=== PATIENT | female | born 1980 | race Caucasian/White ===

== ENCOUNTER 2018-10-04 12:30 | Emergency (ER) | payer OTHER ==
[~2018-10-04] VITALS: Ht 165.1 cm; Wt 77.1 kg
[~2018-10-04 12:30] MED LIST: CLEOCIN HCL150 MG PO; IBUPROFEN 800800 M1 PO
[2018-10-04] MEDS ORDERED: AMOXICILLIN 50500 MG PO (12:42)
[2018-10-04] MEDS ORDERED: IBUPROFEN 800800 M1 PO (12:43)
[2018-10-04 12:51] LABS: URINE BILIRUBIN NEGATIVE (Negative); URINE BLOOD NEGATIVE (Negative); URINE CLARITY CLEAR; URINE COLOR YELLOW; URINE GLUCOSE-RANDOM NEGATIVE (Negative); URINE KETONES NEGATIVE (Negative); URINE LEUKOCYTES-REFLEX NEGATIVE (Negative); URINE NITRITE-REFLEX NEGATIVE (Negative); URINE PROTEIN NEGATIVE (Negative); URINE UROBILINOGEN 0.2 E.U./dl (0.2-1.0)
[2018-10-04 13:03] LABS: ABSOLUTE BASOPHILS 0.1 thou/uL (0.0-0.2); ABSOLUTE EOSINOPHILS 0.1 thou/uL (0.0-0.7); ABSOLUTE LYMPHOCYTES 2.3 thou/uL (0.8-5.3); ABSOLUTE MONOCYTES 0.3 thou/uL (0.0-1.2); ABSOLUTE NEUTROPHILS 2.9 thou/uL (1.6-8.1); BASOPHILS 1.3 %; EOSINOPHILS 1.5 %; HEMATOCRIT 38.4 % (37.0-47.0); HEMOGLOBIN 13.2 gm/dL (12.0-15.0); LYMPHOCYTES 40.5 %; MCH 33.3 pg (26.0-34.0); MCHC 34.3 g/dL (28.0-37.0); MCV 97.1 fL (80.0-100.0); MONOCYTES 5.8 %; MPV 9.6 fl. (7.2-11.1); NUCLEATED RBCS 0 /100WBC; PLATELET COUNT* 222 thou/uL (150-400); POLYS 50.9 %; RBC 3.96 mil/uL (4.20-5.00); RDW-CV 13.1 % (10.5-14.5); WBC 5.7 thou/uL (4.0-11.0)
[2018-10-04 13:11] LABS: CALCIUM 8.4 mg/dL (8.5-10.1); CREATININE 0.7 mg/dL (0.6-1.3); POTASSIUM 3.9 mmol/L (3.5-5.1)
[2018-10-04 13:15] LABS: ALBUMIN 3.6 g/dL (3.4-5.0); TOTAL BILIRUBIN 0.5 mg/dL (<0.1-1.0); TOTAL PROTEIN 7.2 g/dL (6.4-8.2)
[2018-10-04 13:30] VITALS: BP 108/72
== END 2018-10-04 13:30 | disposition left against medical advice (07) ==
LOC: M.ERS 12:30
PROVIDERS: Physician Assistant
DX: R10.12 Left upper quadrant pain (principal); Z88.6 Allergy status to analgesic agent; Z88.8 Allergy status to other drugs, medicaments and biological substances

== ENCOUNTER 2018-12-28 07:37 | Emergency (ER) | payer OTHER ==
[~2018-12-28] VITALS: Ht 165.1 cm; Wt 81.7 kg
[~2018-12-28 07:37] MED LIST changes: +AMOXICILLIN 50500 MG PO; +AMOXICILLIN500 M1 PO; +PENICILLIN VK500 MG PO; +TOBRAMYCIN SULFA5 ML OPHTHALMIC
[2018-12-28] MEDS ORDERED: FLEXERIL PO (08:40)
[2018-12-28 08:46] VITALS: BP 116/65
== END 2018-12-28 08:46 | disposition home or self-care (01) ==
LOC: M.ERS 07:37
DX: M54.6 Pain in thoracic spine (principal); F17.210 Nicotine dependence, cigarettes, uncomplicated; Z88.6 Allergy status to analgesic agent; Z88.8 Allergy status to other drugs, medicaments and biological substances; Z98.51 Tubal ligation status

== ENCOUNTER 2019-12-04 12:23 | Emergency (ER) | payer OTHER ==
[~2019-12-04] VITALS: Ht 165.1 cm; Wt 99.8 kg
[~2019-12-04 12:23] MED LIST changes: +FLEXERIL PO
[2019-12-04 13:13] VITALS: BP 121/77
== END 2019-12-04 13:16 | disposition left against medical advice (07) ==
LOC: M.ERS 12:23
DX: M26.622 Arthralgia of left temporomandibular joint (principal); Z98.51 Tubal ligation status; Z88.6 Allergy status to analgesic agent; Z88.8 Allergy status to other drugs, medicaments and biological substances; Y04.0XXA Assault by unarmed brawl or fight, initial encounter; Y93.89 Activity, other specified; Y92.89 Other specified places as the place of occurrence of the external cause; Y99.8 Other external cause status

== ENCOUNTER 2019-12-04 17:51 | Emergency (ER) | payer OTHER ==
[~2019-12-04] VITALS: Ht 165.1 cm; Wt 90.7 kg
[2019-12-04 19:49] VITALS: BP 115/75
== END 2019-12-04 19:51 | disposition home or self-care (01) ==
LOC: M.ERS 17:51
DX: R51 Headache (principal); R68.84 Jaw pain; Z88.6 Allergy status to analgesic agent; Z88.8 Allergy status to other drugs, medicaments and biological substances; Z98.51 Tubal ligation status; Y08.89XA Assault by other specified means, initial encounter; Y93.89 Activity, other specified; Y92.89 Other specified places as the place of occurrence of the external cause; Y99.8 Other external cause status

== ENCOUNTER 2019-12-21 13:20 | Emergency (ER) | payer OTHER ==
[~2019-12-21] VITALS: Ht 165.1 cm; Wt 90.7 kg
[2019-12-21 13:57] LABS: ABSOLUTE BASOPHILS 0.1 thou/uL (0.0-0.2); ABSOLUTE EOSINOPHILS 0.2 thou/uL (0.0-0.7); ABSOLUTE LYMPHOCYTES 2.3 thou/uL (0.8-5.3); ABSOLUTE MONOCYTES 0.4 thou/uL (0.0-1.2); EOSINOPHILS 2.1 %; HEMATOCRIT 39.4 % (37.0-47.0); HEMOGLOBIN 13.7 gm/dL (12.0-15.0); LYMPHOCYTES 28.7 %; MCH 34.6 pg (26.0-34.0); MCHC 34.8 g/dL (28.0-37.0); MCV 99.2 fL (80.0-100.0); MONOCYTES 5.4 %; MPV 9.5 fl. (7.2-11.1); NUCLEATED RBCS 0 /100WBC; PLATELET COUNT* 255 thou/uL (150-400); POLYS 62.8 %; RBC 3.97 mil/uL (4.20-5.00); RDW-CV 13.5 % (10.5-14.5)
[2019-12-21 14:02] LABS: CREATININE 0.9 mg/dL (0.6-1.3); POTASSIUM 4.2 mmol/L (3.5-5.1)
[2019-12-21 14:07] LABS: ALBUMIN 3.4 g/dL (3.4-5.0); TOTAL BILIRUBIN 0.6 mg/dL (<0.1-1.0); TOTAL PROTEIN 6.9 g/dL (6.4-8.2)
[2019-12-21 14:25] LABS: URINE BILIRUBIN NEGATIVE (Negative); URINE BLOOD NEGATIVE (Negative); URINE CLARITY CLEAR; URINE COLOR YELLOW; URINE GLUCOSE-RANDOM NEGATIVE (Negative); URINE KETONES NEGATIVE (Negative); URINE LEUKOCYTES-REFLEX NEGATIVE (Negative); URINE NITRITE-REFLEX NEGATIVE (Negative); URINE PROTEIN NEGATIVE (Negative); URINE UROBILINOGEN 0.2 E.U./dl (0.2-1.0)
[2019-12-21] MEDS ORDERED: NORCO 5-325 TA1 EAC2 PO (15:19)
[2019-12-21] MEDS ORDERED: ONDANSETRON HCL4 M2 PO (15:19)
[2019-12-21] MEDS ORDERED: FLAGYL500 M1 PO (15:19)
[2019-12-21 15:47] VITALS: BP 141/46
--- NOTE | 2019-12-21 17:40 | EKG ---
[place] [address] ELECTROCARDIOGRAM REPORT Name: VIVIANA CISNEROS Room: [facility]#: [id number] Admission: 12/21/19 Attend Phys: Discharge: 12/21/19 Date of : 84 Date of Service: 12/21/19 1407 Report #: [id number] THIS REPORT FOR: //name// [facility] ED Test Date: 2019-12-21 Test Time: 14:07:02 Pat Name: VIVIANA CISNEROS Department: Room: Gender: F Bearingizer: : 1980 Requested By: Tila Oliveira Order Number: [id number] MD: Jian Rivero Measurements Intervals [place] Rate: 60 P: 26 CO: 125 QRS: 17 QRSD: 96 T: 31 QT: 433 QTc: 433 Interpretive Statements Sinus rhythm No previous ECG available for comparison Electronically Signed On 12-21-2019 17:39:50 CDT by Jian Rivero [email or web address] <ELECTRONICALLY SIGNED> By: Jian Rivero MD, [facility] 12/21/19 1739 1407 06 Jian Rivero MD, FACC /EPI
== END 2019-12-21 15:35 | disposition home or self-care (01) ==
LOC: M.ERS 13:20
PROVIDERS: Nurse Practitioner Family
DX: N76.0 Acute vaginitis (principal); R11.0 Nausea; R10.12 Left upper quadrant pain; F17.210 Nicotine dependence, cigarettes, uncomplicated; Z98.51 Tubal ligation status; Z88.6 Allergy status to analgesic agent; Z88.8 Allergy status to other drugs, medicaments and biological substances

== ENCOUNTER 2020-04-05 13:49 | Emergency (ER) | payer OTHER ==
[~2020-04-05] VITALS: Ht 165.1 cm; Wt 97.5 kg
[~2020-04-05 13:49] MED LIST changes: +FLAGYL500 M1 PO; +NORCO 5-325 TA1 EAC2 PO; +ONDANSETRON HCL4 M2 PO
[2020-04-05 15:50] VITALS: BP 120/70
== END 2020-04-05 15:51 | disposition home or self-care (01) ==
LOC: M.ERS 13:49
DX: S16.1XXA Strain of muscle, fascia and tendon at neck level, initial encounter (principal); S00.83XA Contusion of other part of head, initial encounter; M25.511 Pain in right shoulder; Z88.6 Allergy status to analgesic agent; Y08.89XA Assault by other specified means, initial encounter; Y93.89 Activity, other specified; Y92.89 Other specified places as the place of occurrence of the external cause; Y99.8 Other external cause status

== ENCOUNTER 2020-05-10 21:22 | Emergency (ER) | payer OTHER ==
[~2020-05-10] VITALS: Ht 165.1 cm; Wt 99.8 kg
[2020-05-10 22:20] LABS: URINE BILIRUBIN NEGATIVE (Negative); URINE BLOOD NEGATIVE (Negative); URINE CLARITY CLEAR; URINE COLOR YELLOW; URINE GLUCOSE-RANDOM NEGATIVE (Negative); URINE KETONES NEGATIVE (Negative); URINE LEUKOCYTES-REFLEX NEGATIVE (Negative); URINE NITRITE-REFLEX NEGATIVE (Negative); URINE PROTEIN NEGATIVE (Negative); URINE UROBILINOGEN 0.2 E.U./dl (0.2-1.0)
[2020-05-10 22:31] LABS: AMP/METHAMP Negative (Negative); BARBITURATES Negative (Negative); BENZODIAZEPINES Negative (Negative); COCAINE Negative (Negative); METHADONE Negative (Negative); OPIATES Negative (Negative); PCP Negative (Negative); THC POSITIVE (Negative)
[2020-05-10 23:17] VITALS: BP 146/63
== END 2020-05-10 23:18 | disposition home or self-care (01) ==
LOC: M.ERS 21:22
PROVIDERS: Personal Emergency Response Attendant
DX: R51.9 Headache, unspecified (principal); Z98.51 Tubal ligation status; Z88.6 Allergy status to analgesic agent; Z88.8 Allergy status to other drugs, medicaments and biological substances; Z79.899 Other long term (current) drug therapy

== ENCOUNTER 2021-04-21 20:39 | Emergency (ER) | payer OTHER ==
[~2021-04-21] VITALS: Ht 162.6 cm; Wt 91.6 kg
[2021-04-21 21:13] LABS: HEMATOCRIT 42.4 % (37.0-47.0); HEMOGLOBIN 14.2 gm/dL (12.0-15.0); MCH 33.8 pg (26.0-34.0); MCHC 33.4 g/dL (28.0-37.0); MCV 101.3 fL (80.0-100.0); MPV 9.5 fl. (7.2-11.1); RBC 4.19 mil/uL (4.20-5.00); RDW-CV 13.9 % (10.5-14.5); WBC 7.4 thou/uL (4.0-11.0)
[2021-04-21 21:14] LABS: URINE BILIRUBIN NEGATIVE (Negative); URINE BLOOD 1+ (Negative); URINE CLARITY CLEAR; URINE COLOR YELLOW; URINE GLUCOSE-RANDOM NEGATIVE (Negative); URINE KETONES NEGATIVE (Negative); URINE LEUKOCYTES NEGATIVE (Negative); URINE NITRITE NEGATIVE (Negative); URINE PROTEIN NEGATIVE (Negative); URINE SPECIFIC GRAVITY <= 1.005 (1.005-1.030); URINE UROBILINOGEN 0.2 E.U./dl (0.2-1.0)
[2021-04-21 21:16] LABS: CALCIUM 8.4 mg/dL (8.5-10.1); CREATININE 0.8 mg/dL (0.6-1.3)
[2021-04-21 21:21] LABS: TOTAL BILIRUBIN 0.3 mg/dL (<0.1-1.0); TOTAL PROTEIN 8.3 g/dL (6.4-8.2)
[2021-04-21 21:24] LABS: AMP/METHAMP Negative (Negative); BARBITURATES Negative (Negative); BENZODIAZEPINES Negative (Negative); COCAINE Negative (Negative); METHADONE Negative (Negative); OPIATES Negative (Negative); PCP Negative (Negative); THC Negative (Negative)
[2021-04-21 21:27] LABS: BACTERIA None Seen /HPF (None Seen); CASTS None Seen /LPF (None Seen); CRYSTALS None Seen /LPF (None Seen); MUCUS None Seen strn/LPF (None Seen); SQUAMOUS 0-3 Few /LPF (0-3); URINE RBC 0-2 Rare /HPF (0-2); URINE WBC None Seen /HPF (0-5)
[2021-04-21 21:30] LABS: ALCOHOL 184 mg/dL (<10); SALICYLATE 4.7 mg/dL (2.8-20.0)
[2021-04-21 21:32] LABS: ACETAMINOPHEN < 2 ug/mL (10-30)
[2021-04-22 01:38] VITALS: BP 136/78
== END 2021-04-22 01:40 | disposition home or self-care (01) ==
LOC: M.ERS 20:39
PROVIDERS: Personal Emergency Response Attendant
DX: S61.512A Laceration without foreign body of left wrist, initial encounter (principal); Z20.822 Contact with and (suspected) exposure to COVID-19; R45.851 Suicidal ideations; F41.9 Anxiety disorder, unspecified; F17.210 Nicotine dependence, cigarettes, uncomplicated; Z98.51 Tubal ligation status; Z88.6 Allergy status to analgesic agent; Z88.5 Allergy status to narcotic agent; X83.8XXA Intentional self-harm by other specified means, initial encounter; Y93.89 Activity, other specified; Y92.89 Other specified places as the place of occurrence of the external cause; Y99.8 Other external cause status

== ENCOUNTER 2021-07-09 08:02 | Emergency (ER) | payer OTHER ==
[~2021-07-09] VITALS: Ht 165.1 cm; Wt 81.7 kg
[2021-07-09 08:50] LABS: URINE BILIRUBIN NEGATIVE (Negative); URINE BLOOD NEGATIVE (Negative); URINE CLARITY SL CLOUDY; URINE COLOR YELLOW; URINE GLUCOSE-RANDOM NEGATIVE (Negative); URINE KETONES NEGATIVE (Negative); URINE LEUKOCYTES-REFLEX TRACE (Negative); URINE PROTEIN 1+ (Negative); URINE SPECIFIC GRAVITY 1.025 (1.005-1.030); URINE UROBILINOGEN 0.2 E.U./dl (0.2-1.0)
[2021-07-09 08:52] LABS: URINE NITRITE-REFLEX POSITIVE (Negative)
[2021-07-09 09:09] LABS: CASTS None Seen /LPF (None Seen); CRYSTALS None Seen /LPF (None Seen); SQUAMOUS >10 Many /LPF (0-3); URINE RBC 0-2 Rare /HPF (0-2); URINE WBC-REFLEX 0-5 Rare /HPF (0-5)
[2021-07-09 09:35] LABS: INFLUENZA A ANTIGEN Negative (Negative); INFLUENZA B ANTIGEN Negative (Negative)
[2021-07-09] MEDS ORDERED: ZOFRAN ODT4 MG PO (10:21)
[2021-07-09] MEDS ORDERED: BACTRIM DS TAB1 EACH PO (10:21)
[2021-07-09 10:23] VITALS: BP 109/79
== END 2021-07-09 10:24 | disposition home or self-care (01) ==
LOC: M.ERS 08:02
PROVIDERS: Emergency Medicine
DX: N39.0 Urinary tract infection, site not specified (principal); R11.2 Nausea with vomiting, unspecified; J02.9 Acute pharyngitis, unspecified; R09.81 Nasal congestion; H92.02 Otalgia, left ear; F17.210 Nicotine dependence, cigarettes, uncomplicated; Z98.51 Tubal ligation status; Z88.8 Allergy status to other drugs, medicaments and biological substances; Z88.6 Allergy status to analgesic agent